=== PATIENT | female | born 1970 | race African-American/Black ===

== ENCOUNTER 2017-02-26 08:18 | Outpatient (CLI) | payer OTHER ==
--- NOTE | 2017-02-26 09:12 | Mammography Report ---
BILATERAL DIGITAL SCREENING MAMMOGRAM with CAD: 02/26/17 08:18:00 CLINICAL: Routine screening. COMPARISON:12/27/15 FINDINGS: The breasts are heterogeneously dense, which may obscure small masses. No mass, architectural distortion or suspicious calcifications. IMPRESSION: No mammographic evidence of malignancy. BI-RADS CATEGORY: 1 - - Negative RECOMMENDATION: Routine mammographic screening in one year. COMMENT: Patient follow-up letters are generated by our [employer] application.
== END 2017-02-26 08:19 | disposition home or self-care (01) ==
LOC: MAMMO 08:18
PROVIDERS: ATTEND Nurse Practitioner Women's Health
DX: Z12.31 Encounter for screening mammogram for malignant neoplasm of breast (principal)
CPT/HCPCS: 77067; G0202

== ENCOUNTER 2018-03-23 09:57 | Outpatient (CLI) | payer OTHER ==
--- NOTE | 2018-03-24 12:50 | Mammography Report ---
Bilateral mammogram: Compared to 02/26/17. CAD study utilized. Findings: Motor Racer of glandular parenchyma bilaterally. No mass or microcalcification. Benign axillary nodes. Impression: Benign findings. Annual followup recommended. BI-RADS CATEGORY: 2 = Benign ACR BI-RADS MAMMOGRAPHIC CODES: 0 = Needs additional imaging evaluation; 1 = Negative; 2 = Benign; 3 = Probably benign; 4 = Suspicious; 5 = Malignant; 6 = Known biopsy-proven malignancy COMMENT: 1. Dense breast tissue, i.e., adenosis, fibrocystic changes, etc., may obscure an underlying neoplasm. 2. Approximately 10% of cancers are not detected with mammography. 3. A negative mammography report should not delay biopsy if a clinically suspicious mass is present. COMMENT: Patient follow-up letters are generated in [employer].
== END 2018-03-23 09:58 | disposition home or self-care (01) ==
LOC: MAMMO 09:57
PROVIDERS: ATTEND Obstetrics & Gynecology
DX: Z12.31 Encounter for screening mammogram for malignant neoplasm of breast (principal)
CPT/HCPCS: 77067

== ENCOUNTER 2019-03-30 09:03 | Outpatient (CLI) | payer OTHER ==
--- NOTE | 2019-03-30 11:55 | Mammography Report ---
Bilateral mammogram: Compared to 03/23/18 and 02/26/17. CAD study utilized. Findings: Predominance of adipose tissue bilaterally. Focal asymmetry upper posterior right breast seen on MLO view. No microcalcification. Normal axilla. Impression: Focal asymmetry right breast. Recommend spot compression sonographic examination. BI-RADS CATEGORY: 0 = Needs additional imaging evaluation ACR BI-RADS MAMMOGRAPHIC CODES: 0 = Needs additional imaging evaluation; 1 = Negative; 2 = Benign; 3 = Probably benign; 4 = Suspicious; 5 = Malignant; 6 = Known biopsy-proven malignancy COMMENT: 1. Dense breast tissue, i.e., adenosis, fibrocystic changes, etc., may obscure an underlying neoplasm. 2. Approximately 10% of cancers are not detected with mammography. 3. A negative mammography report should not delay biopsy if a clinically suspicious mass is present. COMMENT: Patient follow-up letters are generated in [place].
== END 2019-03-30 09:04 | disposition home or self-care (01) ==
LOC: MAMMO 09:03
PROVIDERS: ATTEND Obstetrics & Gynecology
DX: Z12.31 Encounter for screening mammogram for malignant neoplasm of breast (principal)
CPT/HCPCS: 77067

== ENCOUNTER 2019-06-15 09:24 | Outpatient (CLI) | payer OTHER ==
--- NOTE | 2019-06-15 10:27 | Mammography Report ---
RIGHT DIGITAL DIAGNOSTIC MAMMOGRAM WITH CAD RIGHT BREAST ULTRASOUND INDICATION: Recall for asymmetry. TECHNIQUE: Digital right mammographic imaging was performed. Spot compression views were obtained. T his examination was interpreted with the benefit of Computer-Aided Detection (CAD) analysis. COMPARISON: 03/30/2019 FINDINGS: Breast Density: The breast is heterogeneously dense, which may obscure small masses. Near complete effacement of asymmetry on a spot compression view. Lateral and exaggerated CC views ar e negative. Ultrasound Findings: Targeted ultrasound evaluation was performed of the area of interest. Ultrasou nd of the outer breast demonstrated normal fibroglandular structures with no mass cyst or shadowing. IMPRESSION: Negative mammogram with benign asymmetric summation density and negative left breast ultr asound. BI-RADS Category 1: Negative. Recommend routine screening mammography in one year. A "normal" or negative report should not discourage follow up or biopsy of a clinically significant f inding. A written summary of these findings will be mailed to the patient. The patient will be entered into a mammography reporting system which will generate a reminder letter for the patient's next appointmen t at the appropriate interval. FURTHER INFORMATION: According to the [employer], yearly mammograms are recommend ed starting at age 40 and continuing as long as a woman is in good health. Breast MRI is recommended for women with an approximately 20-25% or greater lifetime risk of breast cancer, including women wi th a strong family history of breast or ovarian cancer and women who have been treated for Hodgkin's disease. Signer Name: Paco Montero MD Signed: 06/15/2019 10:23 AM Workstation Name: [id number]
== END 2019-06-15 09:25 | disposition home or self-care (01) ==
LOC: MAMMO 09:24
PROVIDERS: ATTEND Obstetrics & Gynecology
DX: R92.2 Inconclusive mammogram (principal)